=== PATIENT | female | born 1975 | race Caucasian/White ===

== ENCOUNTER 2023-02-13 08:36 | Emergency (ER) | payer MEDICAID, SELFPAY ==
--- NOTE | ~2023-02-13 | XR_ITS ---
EXAMINATION: XR TOES, RIGHT CLINICAL INFORMATION: post reduction 3rd toe COMPARISON: Same date at 9:40 AM TECHNIQUE: 2 views of the right toes were obtained. FINDINGS: There is a spiral fracture through the third toe proximal phalangeal shaft with slight lateral displacement of the distal fragment by 1 mm, improved as compared to prior. No new fractures. No significant angulation. XR/XR toe RT min 2V IMPRESSION: Improved alignment of the third toe proximal phalangeal shaft fracture.
--- NOTE | ~2023-02-13 | XR_ITS ---
EXAMINATION: XR TOES, RIGHT CLINICAL INFORMATION: Jam injury COMPARISON: None available. TECHNIQUE: 3 views of the right toes were obtained. FINDINGS: Mildly displaced spiral fracture of the third proximal phalangeal mid diaphysis with apex volar angulation. Joint spaces and alignment are otherwise maintained. Soft tissues are unremarkable. XR/XR toe RT min 2V IMPRESSION: Mildly displaced spiral fracture of the third proximal phalangeal mid diaphysis with apex volar angulation.
[2023-02-13 08:54] VITALS: BP 120/68; PULSE 75; RESP 16; TEMP 36.8; O2SAT 99; BMI 21.5
--- NOTE | 2023-02-13 08:57 | ED_ITS ---
HPI - General Adult General Chief complaint: Extremity Injury, Lower Stated complaint: r middle toe inj Time Seen by Provider: 02/13/23 08:57 Source: patient Mode of arrival: ambulatory Limitations: no limitations History of Present Illness HPI narrative: Patient is a 47-year-old female presenting to the emergency department with complaint pain to right 2nd and 3rd toes as well as distal foot. States that she was cleaning this morning and noted that her son was leaving for school and she forgot to give him a snack. States that she ran to stop him, her foot hit the corner of the wall, with the corner with wedging between her 2nd and 3rd toes. States she did not take any [id number] medications prior to arrival but did apply butter because she feels this will keep the area from bruising. Denies any numbness or tingling. Denies any decreased range of motion to toes. complaint: foot pain Onset (ago): hour(s) Location: right and lower extremity Radiation: non-radiation Severity: moderate Quality: aching Pain Consistency: constant Relieving factors: rest Exacerbating factors: movement Associated symptoms: denies other symptoms Treatments prior to arrival: other (butter) Related Data Allergies Allergy/AdvReac Type Severity Reaction Status Date / Time Penicillins Allergy Rash Verified 02/13/23 08:53 Review of Systems Review of Systems: As per HPI. Yes all other systems are reviewed and are negative Constitutional: Constitutional: Reports as per HPI [facility] Social History Social History Advance Directives: No Advance Directives Information Provided: No Physical Exam ED Vital Signs: Vital Signs - 24 hr 02/13/23 08:54 Temperature 98.2 F Pulse Rate 75 Respiratory Rate 16 Blood Pressure 120/68 Pulse Oximetry 99 Oxygen Delivery Method Room Air BMI result Body Mass Index 21.5 Vital signs have been reviewed and appear to be correct. Blood pressure normal. Heart rate normal. Respiratory rate normal. Temperature normal. Oxygen saturation normal. Const General: cooperative, healthy appearing and no acute distress Orientation/consciousness: oriented to person, oriented to place, oriented to time and patient oriented x3 Limitations: no limitations HENMT Head: Yes normocephalic and Yes atraumatic Ears: external ears normal General nose exam: Normal external nose present Face and sinus: Yes face symmetric Mouth: oropharynx normal and moist mucous membranes Throat: Yes uvula midline Eyes Pupils: Equal, round and reactive pupils present Neck Neck: Yes normal visual inspection and Yes supple Resp Effort & Inspection: normal respiratory effort and able to speak in complete sentences Auscultation: clear to auscultation bilaterally Cardio Rate: regular rate Rhythm: regular rhythm Heart sounds: S1 normal heart sound present and S2 normal heart sound present GI Palpation (GI): Soft to palpation and nontender Auscultation: normoactive bowel sounds General: Yes no CVA tenderness Back/Spine/Pelvis Back: no CVA tenderness Skin General skin exam: elasticity normal and turgor normal Neuro General: oriented to person, oriented to place, oriented to time, patient oriented x3, moves all extremities, no focal motor deficits and CN's II-XI intact bilaterally Cranial nerves: Yes Equal, round and reactive pupils present Cognition (Neuro): normal cognition Extrem General: Yes full ROM, Yes no pedal edema and Yes no calf tenderness Right lower extremity: foot Details: normal capillary refill, normal to inspection, tenderness Location: of the dorsal foot Location: distally (2nd/3rd metatarsals) and of another digit Location: the 2nd digit, the 3rd digit, at the proximal phalanx, at the PIP joint and along the dorsal aspect, toes with normal ROM and vascular exam Details: dorsalis pedis pulse present and posterior tibial pulse present; no ecchymosis Psych Mental Status: mental status grossly normal Affect: normal affect Thought process: Normal thought process present Medications Administered Discontinued Medications Generic Name Dose Route Start Last Admin Trade Name Abielq PRN Reason Stop Dose Admin Acetaminophen 650 mg 02/13/23 09:05 02/13/23 09:54 Acetaminophen 325 Mg Tablet PO 02/13/23 09:06 650 mg ONCE ONE Administration Ibuprofen 600 mg 02/13/23 09:05 02/13/23 09:54 Ibuprofen 600 Mg Tablet PO 02/13/23 09:06 600 mg ONCE ONE Administration Lidocaine HCl 10 ml 02/13/23 11:26 02/13/23 11:44 Lidocaine Hcl 1 % Mpf 5 Ml Vial INFILTRATI 02/13/23 11:27 10 ml ONCE ONE Administration Procedures Orthopedic Fracture Reduction Fracture #1: Time Out Performed: Yes Side: right Fracture Reduction Location: toe Analgesia: other (digital block) Technique: direct manipulation Post Reduction X-rays Demonstrate: acceptable reduction Post-reduction neuro exam: no change Post-reduction vascular exam: no change Splint Applied: No (rabia taped to 2nd toe) Patient Tolerated Procedure: well and no complications Medical Decision Making Medical Decision Making MDM Narrative: Patient is a 47-year-old female presenting to the emergency department with complaint pain to right 2nd and 3rd toes as well as distal foot. On exam patient is awake, A+Ox3, VS WNL, afebrile, normal neurological exam without focal deficits, physical exam findings as above. Given reported symptoms and physical exam findings, initial differential includes contusion versus fracture. Patient medicated with Tylenol and ibuprofen. X-ray notable for spiral fracture to 3rd phalanx. My interpretation is in agreement with the radiologist's interpretation. Fracture reduced as per procedure note. Post reduction x-ray shows improved alignment. Third toe taped to 2nd toe and postop shoe applied. Advised patient to continue using Tylenol/ibuprofen as needed for discomfort, elevate foot while at rest, apply ice intermittently. Instructed patient to follow up with PCP. Will refer to Ortho for any ongoing concerns. Return precautions discussed. Patient verbalized understanding of and agreement with plan. Differential Diagnosis Differential Diagnoses: The differential diagnosis associated with the presentation includes contusion, fracture, strain Independent Interpretation I performed an independent interpretation of an: Plain X-Ray Interpretation: Right 3rd phalanx fracture Post reduction x-ray shows improved alignment Radiology Impression Discussion of test interpretation with radiology: I have reviewed the radiologist's reading. Radiologist Impression: XR/XR toe RT min 2V IMPRESSION: Mildly displaced spiral fracture of the third proximal phalangeal mid diaphysis with apex volar angulation. XR/XR toe RT min 2V IMPRESSION: Improved alignment of the third toe proximal phalangeal shaft fracture. External Record Review External record reviewed: Inpatient record, Office record and Outpatient record Discharge Plan Discharge Clinical Impression: Closed fracture of phalanx of right third toe Qualifiers: Encounter type: initial encounter Qualified Code(s): S92.501A - Displaced unspecified fracture of right lesser toe(s), initial encounter for closed fracture Patient Disposition: Home, Self-Care Instructions: Toe Fracture (ED), R.I.C.E. Treatment (ED) Additional Instructions: You have been evaluated in the emergency department today for foot pain. Your x-ray showed a fracture of your third toe. We have provided a post-op shoe for you to use while your toe heals. Please rest, ice, and elevate your foot, and resume normal activities as tolerated. We recommend you take 600mg ibuprofen every 6 hours or 650mg Tylenol every 6 hours as needed for pain. If needed you can alternate these medications as they take 1 medication every 3 hours. For instance at noon take ibuprofen, then at 3:00 p.m. take Tylenol, then at 6:00 p.m. take ibuprofen. Please schedule an appointment for follow-up with your primary care provider this week. Return to the emergency department if you experience worsening pain, numbness, tingling, change of color in your toes, or any other concerning symptoms. Please follow up with orthopedics for any ongoing symptpoms. Referrals: [facility] [place] [facility] [Provider Group] Stand Alone Forms: Work/School Release
[2023-02-13] MEDS: Acetaminophen 325 MG TABLET 650 MG PO (09:54)
[2023-02-13] MEDS: Ibuprofen 600 MG TABLET PO (09:54)
[2023-02-13] MEDS: Lidocaine HCl 1 % MPF 5 ML VIAL 10 ML INFILTRATI (11:44)
--- NOTE | 2023-02-13 11:46 | PC.NURSE ---
PROVIDER AT THE BEDSIDE TO MEDICATED/NERVE BLOCK FOR REDUCTION
--- NOTE | 2023-02-13 12:59 | PC.NURSE ---
IMPROVED ALIGNMENT WAS NOTED AFTER REDUCTION SHE WAS PLACED N A POST OP SHOE AND IS TOLERATING MOBILITY WELL
== END 2023-02-13 13:03 | disposition home or self-care (01) ==
PROVIDERS: Emergency Provider Emergency Medicine
DX: S92.511A Displaced fracture of proximal phalanx of right lesser toe(s), initial encounter for closed fracture (principal); W22.01XA Walked into wall, initial encounter; Y93.89 Activity, other specified; Y92.039 Unspecified place in apartment as the place of occurrence of the external cause; Y99.9 Unspecified external cause status
CPT/HCPCS: 28515; 73660; 99283; 99284